=== PATIENT | male | born 1965 | race African-American/Black ===

== ENCOUNTER 2021-01-19 10:53 | Emergency (ER) | payer MEDICAID ==
[2021-01-19] MEDS ORDERED: Boostrix 0.5 ML (Tdap) VIAL ONE (11:37)
== END 2021-01-19 11:44 | disposition home or self-care (01) ==
LOC: BURERS 10:53
DX: E11.621 Type 2 diabetes mellitus with foot ulcer (principal); L97.529 Non-pressure chronic ulcer of other part of left foot with unspecified severity; E11.65 Type 2 diabetes mellitus with hyperglycemia
CPT/HCPCS: 36416; 87070; 87077; 87205; 90471; 90715

== ENCOUNTER 2023-11-08 21:45 | Emergency (ER) | payer MEDICAID, OTHER ==
[2023-11-08] MEDS ORDERED: Naproxen 500 MG TAB ONE (23:29)
== END 2023-11-08 23:46 | disposition home or self-care (01) ==
LOC: BURERS 21:45
DX: S06.0X0A Concussion without loss of consciousness, initial encounter (principal); S16.1XXA Strain of muscle, fascia and tendon at neck level, initial encounter; R51.9 Headache, unspecified; I10 Essential (primary) hypertension; E11.9 Type 2 diabetes mellitus without complications; V89.2XXA Person injured in unspecified motor-vehicle accident, traffic, initial encounter; Z79.4 Long term (current) use of insulin; Z79.899 Other long term (current) drug therapy
CPT/HCPCS: 70450; 72125